=== PATIENT | male | born 1990 | race Caucasian/White ===

== ENCOUNTER 2024-08-17 15:43 | Emergency (ER) | payer OTHER ==
[~2024-08-17] VITALS: Ht 172.7 cm; Wt 85.6 kg
[2024-08-17] MEDS ORDERED: ONDA-282 PO (18:26)
[2024-08-17] MEDS: ONDANSETRON 4MG ORAL DISINTEGRATING TAB PO ONE (18:40)
[2024-08-17 18:43] VITALS: BP 123/84; TEMP 98; O2SAT 100
== END 2024-08-17 18:51 | disposition home or self-care (01) ==
LOC: M ED 15:43
DX: F07.81 Postconcussional syndrome (principal); Z79.899 Other long term (current) drug therapy